=== PATIENT | female | born 1975 | race Hispanic/Latino ===

== ENCOUNTER 2016-10-29 17:11 | Emergency (ER) | payer SELFPAY ==
[~2016-10-29] VITALS: Ht 157.5 cm; Wt 63.0 kg
[~2016-10-29 17:11] MED LIST: BACTRIM DS1 TAB OR; BENADRYL 50MG C50 MG OR
[2016-10-29 21:55] VITALS: BP 119/74
== END 2016-10-29 21:55 | disposition home or self-care (01) | DRG 605 ==
LOC: ED 17:11
PROC: 0HBQXZZ Excision of Finger Nail, External Approach (ICD-10-PCS; principal; 2016-10-29)
DX: S61.101A Unspecified open wound of right thumb with damage to nail, initial encounter (principal); W22.8XXA Striking against or struck by other objects, initial encounter; W19.XXXA Unspecified fall, initial encounter